=== PATIENT | female | born 1985 | race Caucasian/White ===

== ENCOUNTER 2024-12-18 12:16 | Outpatient (REF) | payer MEDICAID, SELFPAY ==
[2024-12-20 11:09] LABS: Age Gdln ACOG Testing Note (.); HPV Aptima Negative (Negative); IGP, Aptima HPV, rfx 16/18,45 Note (.)
== END 2024-12-18 12:17 | disposition home or self-care (01) ==
LOC: LAB 12:16
PROVIDERS: Visit Provider Physician Assistant
DX: Z01.419 Encounter for gynecological examination (general) (routine) without abnormal findings (principal)
CPT/HCPCS: 87624; 88175